=== PATIENT | male | born 1945 | race Caucasian/White ===

== ENCOUNTER 2016-10-02 02:39 | Inpatient (IN) | payer OTHER ==
[2016-10-02] VITALS (10 sets, daily range): BP systolic 106–155; BP diastolic 57–79; PULSE 50–88; TEMP 36.4–37.1; O2SAT 94–97; Ht 177.8 cm; Wt 108.9 kg
[~2016-10-02] VITALS: Ht 177.8 cm; Wt 108.9 kg
[2016-10-02] MEDS ORDERED: ASPIRIN 81 MG CHEW PO STA (02:53)
--- NOTE | 2016-10-02 03:25 | EMERGENCY ROOM VISIT NOTE ---
History Report prepared by Norbertibmarcos: Silver Leblanc Under the Supervision of: Dr. Ren Sarah D.O. First contact with patient: 02:42 Chief Complaint: CARDIAC ASSESSMENT Stated Complaint: BURNING SENSATION IN CHEST,HX HEART ATTACK History of Present Illness The patient is a 70 year old male who presents to the Emergency Room with complaints of resolved burning chest pain starting prior to arrival. The patient states that he has a history of myocardial infarctions and admits that his current symptoms feel similar to his previous heart attacks. The patient states that his previous history with myocardial infarctions caused him to get stents in 2013 and 2015. He reports that he has been getting these burning sensations intermittently for the last week and admits it occurs with exertion. The patient reports that earlier tonight, he was walking up the steps and laid down when he felt the burning sensation again. He states that he took nitroglycerin and admits that the symptoms resolved. The patient reports that he had arm pain, but admits he has been lifting heavy objects recently. He reports that he takes Aspirin daily. The patient denies headache, jaw pain, edema to the legs, change in vision, fevers, shortness of breath, nausea, vomiting, diarrhea, pain with urination, and melena. Source of History: patient Onset: prior to arrival Position: chest Quality: burning Timing: resolved Modifying Factors (Worsening): exertion Associated Symptoms: No SOB, No nausea, No vomiting Review of Systems See HPI for pertinent positives & negatives. A total of 10 systems reviewed and were otherwise negative. Past Medical & Surgical Medical Problems: (1) Acute coronary syndrome (2) Myocardial infarction (3) Substernal precordial chest pain Surgical Problems: (1) H/O heart artery stent Family History Patient reports no known family medical history. Social History Drug Use: none Marital Status: Housing Status: lives with significant other Occupation Status: retired Current/Historical Medications Scheduled Allopurinol (Zyloprim), 100 MG PO DAILY Aspirin (Aspirin Ec), 81 MG PO DAILY Atorvastatin (Lipitor), 80 MG PO DAILY Carvedilol (Coreg), 6.25 MG PO BID Clopidogrel (Plavix), 75 MG PO DAILY Ezetimibe (Zetia), 10 MG PO HS Insulin Glargine (Lantus), 44 UNITS SC HS Lisinopril (Prinivil), 10 MG PO DAILY Metformin Hcl (Glucophage), 1,000 MG PO BID Pantoprazole (Protonix), 40 MG PO DAILY Tamsulosin Hcl (Flomax), 0.4 MG PO HS Allergies Coded Allergies: No Known Allergies (Unverified , 10/02/16) Physical Exam Vital Signs Date Time Temp Pulse Resp B/P (MAP) Pulse Ox O2 Delivery O2 Flow Rate FiO2 10/02/16 05:54 58 16 122/56 96 10/02/16 05:07 54 16 122/60 95 Room Air 10/02/16 05:01 122/60 95 Room Air 10/02/16 04:44 61 15 10/02/16 04:31 112/62 10/02/16 04:14 57 15 93 Room Air 10/02/16 04:01 108/52 10/02/16 04:00 68 19 108/52 94 Room Air 10/02/16 03:44 67 20 10/02/16 03:39 65 13 94 Room Air 10/02/16 03:32 65 20 116/52 94 Room Air 10/02/16 03:32 10/02/16 03:09 66 17 93 Room Air 10/02/16 02:54 94 Room Air 10/02/16 02:53 68 10/02/16 02:49 113/87 10/02/16 02:45 94 Room Air 10/02/16 02:45 36.9 22 113/87 94 Room Air Physical Exam GENERAL: Sitting up in bed, alert, well appearing, well nourished, no distress, non-toxic EYE EXAM: normal conjunctiva, PERRL and EOM's grossly intact OROPHARYNX: no exudate, no erythema, lips, buccal mucosa, and tongue normal and mucous membranes are moist NECK: supple, no nuchal rigidity, no adenopathy, non-tender LUNGS: Clear to auscultation. Normal chest wall mechanics HEART: no murmurs, S1 normal and S2 normal ABDOMEN: abdomen soft, non-tender, normo-active bowel sounds, no masses, no rebound or guarding. BACK: Back is symmetrical on inspection and there is no deformity, no midline tenderness, no CVA tenderness. SKIN: no rashes and no bruising UPPER EXTREMITIES: upper extremities are grossly normal. LOWER EXTREMITIES: No pitting edema. Calves are equal bilaterally. NEURO EXAM: Normal sensorium. Medical Decision & Procedures ER Provider Diagnostic Interpretation: Radiology results as stated below per my review and the my interpretation: PORTABLE AP UPRIGHT ONE VIEW CHEST X-RAY: No Pneumothorax. No Focal Infiltrate. Laboratory Results 10/02/16 03:00 Red Blood Count 4.45, Mean Corpuscular Volume 90.6, Mean Corpuscular Hemoglobin 29.9, Mean Corpuscular Hemoglobin Concent 33.0, Mean Platelet Volume 11.3, Neutrophils (%) (Auto) 52.7, Lymphocytes (%) (Auto) 36.6, Monocytes (%) (Auto) 8.3, Eosinophils (%) (Auto) 2.0, Basophils (%) (Auto) 0.2, Neutrophils # (Auto) 4.98, Lymphocytes # (Auto) 3.47, Monocytes # (Auto) 0.79, Eosinophils # (Auto) 0.19, Basophils # (Auto) 0.02 10/02/16 03:00 Test 10/02/16 03:00 10/02/16 05:47 10/02/16 05:51 White Blood Count 9.47 K/uL (4.8-10.8) Red Blood Count 4.45 M/uL (4.7-6.1) Hemoglobin 13.3 g/dL (14.0-18.0) Hematocrit 40.3 % (42-52) Mean Corpuscular Volume 90.6 fL (80-100) Mean Corpuscular Hemoglobin 29.9 pg (25-34) Mean Corpuscular Hemoglobin Concent 33.0 g/dl (32-36) Platelet Count 234 K/uL (130-400) Mean Platelet Volume 11.3 fL (7.4-10.4) Neutrophils (%) (Auto) 52.7 % Lymphocytes (%) (Auto) 36.6 % Monocytes (%) (Auto) 8.3 % Eosinophils (%) (Auto) 2.0 % Basophils (%) (Auto) 0.2 % Neutrophils # (Auto) 4.98 K/uL (1.4-6.5) Lymphocytes # (Auto) 3.47 K/uL (1.2-3.4) Monocytes # (Auto) 0.79 K/uL (0.11-0.59) Eosinophils # (Auto) 0.19 K/uL (0-0.5) Basophils # (Auto) 0.02 K/uL (0-0.2) RDW Standard Deviation 44.1 fL (36.4-46.3) RDW Coefficient of Variation 13.4 % (11.5-14.5) Immature Granulocyte % (Auto) 0.2 % Immature Granulocyte # (Auto) 0.02 K/uL (0.00-0.02) Anion Gap 6.0 mmol/L (3-11) Est Creatinine Clear Calc Drug Dose 73.1 ml/min Estimated GFR () 71.1 Estimated GFR (Non- 61.3 BUN/Creatinine Ratio 18.0 (10-20) Calcium Level 8.5 mg/dl (8.5-10.1) Total Creatine Kinase 105 U/L (39-308) Creatine Kinase MB 2.1 ng/ml (0.5-3.6) Creatine Kinase MB Ratio 2.0 (0-3.0) Troponin I 0.125 ng/ml (0-0.045) Laboratory results per my review. Medications Administered Medications (Trade) Dose Ordered Sig/Uriah Route Start Time Stop Time Status Last Admin Dose Admin Aspirin (Aspirin Chew) 324 mg NOW STAT PO 10/02/16 02:53 10/02/16 02:55 DC 10/02/16 03:05 324 MG Heparin Sodium/ Dextrose 500 ml @ 32 mls/hr [id number] PRN IV 10/02/16 05:45 11/01/16 05:44 10/02/16 05:48 32 MLS/HR Heparin Sodium (Porcine) (Heparin Sq 5000 Unit/0.5ml) 7,000 unit NOW ONCE IV 10/02/16 05:45 10/02/16 05:46 DC 10/02/16 05:44 7,000 UNIT ECG Indication: chest pain Rate (beats per minute): 69 Rhythm: sinus rhythm Findings: nonspecific-ST abn (Lateral), Q waves (Septal), ST depression ( Inferior), T-wave inversion (Lateral), left axis deviation ED Course ED COURSE: Vital signs were reviewed and showed bradycardia. The patients medical record was reviewed The above diagnostic studies were performed and reviewed. ED treatments and interventions as stated above. 0248: The patient was evaluated in room A02. A complete history and physical examination was performed. 0253: Aspirin 324 mg PO. 0417: I reevaluated the patient and he is resting comfortably with no pain. I updated him on his results and discussed his treatment plan. He agrees to admission. The patient will be further evaluated. 0450: I discussed the patient's case with Dr. Fajardo [facility] Hospitalist. He understands the patient's conditions and agrees to accept the patient. The patient will be further evaluated. Medical Decision Differential diagnoses includes but is not limited to acute coronary syndrome, myocardial infarction, pericarditis, pulmonary embolus, aortic dissection, pneumonia, pneumothorax, musculoskeletal, shingles, esophageal. Medication Reconciliation: I attest that I have personally reviewed the patient' s current medication list. Blood pressure screening: Patient was found to have normal blood pressure on screening and does not require follow-up. Patient is a 70-year-old male with past medical history of an OH in 2013 following which he had stents placed. He also had stents placed this past October as well for exertional chest pain. Tonight he presents for exertional chest pain described as a burning which has been present off-and-on for the past week. He notes the pain has been getting worse. This occurred tonight after climbing a flight of stairs. Pain resolved with nitroglycerin. He was given aspirin in the ER. EKG shows septal Q waves along with flipped T waves in the high lateral leads and slight ST depression in the inferior leads. Chest x-ray was negative. This in combination with his history I felt it was prudent to watch him overnight as he is a high risk for ACS. Troponin was positive. Patient had no chest pain on 2 separate evaluations. Patient was admitted to internal medicine for and NSTEMI. Consults Time Called: [phone] Consulting Physician: Dr. Fajardo [facility] Hospitalist Returned Call: [phone] I discussed the patient's case with Dr. Fajardo [facility] Hospitalist. He understands the patient's conditions and agrees to accept the patient. The patient will be further evaluated. Impression Primary Impression: NSTEMI (non-ST elevated myocardial infarction) Scribe Attestation The scribe's documentation has been prepared under my direction and personally reviewed by me in its entirety. I confirm that the note above accurately reflects all work, treatment, procedures, and medical decision making performed by me. Departure Information Dispostion Being Evaluated By Hospitalist (Dr. Fajardo, [facility] Hospitalist) Referrals No Doctor, Assigned (PCP) Patient Instructions My [facility]
[2016-10-02 03:28] LABS: BASO % 0.2 %; BASO ABS # 0.02 K/uL (0-0.2); COMPLETE YES; HEMATOCRIT 40.3 % (42-52); IG% 0.2 %; LYMPH % 36.6 %; LYMPH ABS # 3.47 K/uL (1.2-3.4); MEAN CELL VOLUME 90.6 fL (80-100); MEAN CORPUSCULAR HEMOGLOBIN 29.9 pg (25-34); MEAN PLATELET VOLUME 11.3 fL (7.4-10.4); MONO % 8.3 %; NEUT % 52.7 %; PLATELET COUNT 234 K/uL (130-400); RED BLOOD COUNT 4.45 M/uL (4.7-6.1); WHITE BLOOD COUNT 9.47 K/uL (4.8-10.8)
[2016-10-02 03:35] LABS: CALCIUM 8.5 mg/dl (8.5-10.1); CREATININE 1.2 mg/dl (0.60-1.40); POTASSIUM 4.1 mmol/L (3.5-5.1)
[2016-10-02] MEDS ORDERED: ASPI81TA28 PO (04:03)
[2016-10-02] MEDS ORDERED: CARV6.252 PO (04:03)
[2016-10-02] MEDS ORDERED: ALLO100T PO (04:03)
[2016-10-02] MEDS ORDERED: METF-384 PO (04:03)
[2016-10-02] MEDS ORDERED: PANT40TA PO (04:03)
[2016-10-02] MEDS ORDERED: EZET10TA63 PO (04:05)
[2016-10-02] MEDS ORDERED: TAMS0.4C38 PO (04:05)
[2016-10-02] MEDS ORDERED: ATOR-26 PO (04:05)
[2016-10-02] MEDS ORDERED: LISI10TA PO (04:05)
[2016-10-02] MEDS ORDERED: CLOP1TAB15 PO (04:05)
[2016-10-02] MEDS ORDERED: INSDGI SC (04:05)
[2016-10-02] MEDS ORDERED: ONDANSETRON INJ 2 MG/ML 2 ML VIAL IV PRN (05:30)
[2016-10-02] MEDS ORDERED: NITROGLYCERIN 0.4 MG SL PER TAB CHARGE SL PRN (05:30)
[2016-10-02] MEDS ORDERED: POLYETHYLENE (MIRALAX) 17 GM PACK PO PRN (05:30)
[2016-10-02] MEDS ORDERED: MoRPHine SULFATE 2 MG/ML CARP IV PRN ×2 (05:30→17:15)
--- NOTE | 2016-10-02 05:40 | History and Physical ---
History & Physical Date & Time of Service: Oct 02, 2016 at 05:33 Chief Complaint: Burning Sensation In Chest,Hx Heart Attack Primary Care Physician: No Doctor, Assigned History of Present Illness Source: patient 70-year-old male with a past medical history of SC in 2013, 2016 status post stent placement, diabetes, gout presented to the ER with complaints of burning chest pain which started about a week ago which is especially worse on exertion. Complains that the chest pain worsened last night after he took a flight of stairs described the pain as a burning sensation. Pain is in the precordial area with no radiation. Denies any shortness of breath, palpitations, dizziness. He however has shortness of breath on exertion. He reported that the chest pain resolved after taking one tablet of sublingual nitroglycerin and currently is pain-free. Denies any diaphoresis but complained of nausea. Denies vomiting, abdominal pain, diarrhea, coughing, urinary symptoms Past Medical/Surgical History Medical Problems: (1) Myocardial infarction Status: Resolved Surgical Problems: (1) H/O heart artery stent Status: Resolved Family History Patient reports no known family medical history. Social History Smoking Status: Former Smoker Drug Use: none Marital Status: Occupational Status: retired Allergies Coded Allergies: No Known Allergies (Unverified , 10/02/16) Home Medications Scheduled Allopurinol (Zyloprim), 100 MG PO DAILY Aspirin (Aspirin Ec), 81 MG PO DAILY Atorvastatin (Lipitor), 80 MG PO DAILY Carvedilol (Coreg), 6.25 MG PO BID Clopidogrel (Plavix), 75 MG PO DAILY Ezetimibe (Zetia), 10 MG PO HS Insulin Glargine (Lantus), 44 UNITS SC HS Lisinopril (Prinivil), 10 MG PO DAILY Nitroglycerin (Nitrostat), 1 TAB SL UD Pantoprazole (Protonix), 40 MG PO DAILY Tamsulosin Hcl (Flomax), 0.4 MG PO HS Review of Systems Constitutional: No fever, No chills Eyes: No worsening of vision ENT: No hearing loss Respiratory: No cough Cardiovascular: + chest pain (burning ) Abdomen: + nausea, No pain, No vomiting, No diarrhea Musculoskeletal: No joint pain Genitourinary - Male: No hematuria, No dysuria, No urinary frequency Neurologic: No memory loss Endocrine: No fatigue Hematologic / Lymphatic: No abnormal bleeding/bruising Integumentary: No rash Physical Exam Vital Signs Date Time Temp Pulse Resp B/P (MAP) Pulse Ox O2 Delivery O2 Flow Rate FiO2 10/02/16 05:07 54 16 122/60 95 Room Air 10/02/16 05:01 122/60 95 Room Air 10/02/16 04:44 61 15 10/02/16 04:31 112/62 10/02/16 04:14 57 15 93 Room Air 10/02/16 04:01 108/52 10/02/16 04:00 68 19 108/52 94 Room Air 10/02/16 03:44 67 20 10/02/16 03:39 65 13 94 Room Air 10/02/16 03:32 65 20 116/52 94 Room Air 10/02/16 03:32 10/02/16 03:09 66 17 93 Room Air 10/02/16 02:54 94 Room Air 10/02/16 02:53 68 10/02/16 02:49 113/87 10/02/16 02:45 94 Room Air 10/02/16 02:45 36.9 22 113/87 94 Room Air General Appearance: WD/WN, no apparent distress Head: normocephalic Eyes: normal inspection ENT: normal ENT inspection, hearing grossly normal Neck: supple Respiratory/Chest: chest non-tender, lungs clear, normal breath sounds, no respiratory distress, no accessory muscle use Cardiovascular: regular rate, rhythm Abdomen/GI: normal bowel sounds, non tender, soft Extremities/Musculoskelatal: no pedal edema Neurologic/Psych: alert, normal mood/affect, oriented x 3 Skin: + pertinent finding (intertrigo under right breast) Diagnostics Laboratory Results Results Past 24 Hours Test 10/02/16 03:00 10/02/16 05:21 Range/Units White Blood Count 9.47 4.8-10.8 K/uL Red Blood Count 4.45 4.7-6.1 M/uL Hemoglobin 13.3 14.0-18.0 g/dL Hematocrit 40.3 42-52 % Mean Corpuscular Volume 90.6 80-100 fL Mean Corpuscular Hemoglobin 29.9 25-34 pg Mean Corpuscular Hemoglobin Concent 33.0 32-36 g/dl Platelet Count 234 130-400 K/uL Mean Platelet Volume 11.3 7.4-10.4 fL Neutrophils (%) (Auto) 52.7 % Lymphocytes (%) (Auto) 36.6 % Monocytes (%) (Auto) 8.3 % Eosinophils (%) (Auto) 2.0 % Basophils (%) (Auto) 0.2 % Neutrophils # (Auto) 4.98 1.4-6.5 K/uL Lymphocytes # (Auto) 3.47 1.2-3.4 K/uL Monocytes # (Auto) 0.79 0.11-0.59 K/uL Eosinophils # (Auto) 0.19 0-0.5 K/uL Basophils # (Auto) 0.02 0-0.2 K/uL RDW Standard Deviation 44.1 36.4-46.3 fL RDW Coefficient of Variation 13.4 11.5-14.5 % Immature Granulocyte % (Auto) 0.2 % Immature Granulocyte # (Auto) 0.02 0.00-0.02 K/uL Sodium Level 141 136-145 mmol/L Potassium Level 4.1 3.5-5.1 mmol/L Chloride Level 103 98-107 mmol/L Carbon Dioxide Level 32 21-32 mmol/L Anion Gap 6.0 3-11 mmol/L Blood Urea Nitrogen 22 7-18 mg/dl Creatinine 1.20 0.60-1.40 mg/dl Est Creatinine Clear Calc Drug Dose 73.1 ml/min Estimated GFR () 71.1 Estimated GFR (Non- 61.3 BUN/Creatinine Ratio 18.0 10-20 Random Glucose 238 70-99 mg/dl Calcium Level 8.5 8.5-10.1 mg/dl Total Creatine Kinase 105 39-308 U/L Creatine Kinase MB 2.1 0.5-3.6 ng/ml Creatine Kinase MB Ratio 2.0 0-3.0 Troponin I 0.125 0-0.045 ng/ml EKG NSR, 69 BPM ,nonspecific-ST abn (Lateral), Q waves (Septal), ST depression ( Inferior), T-wave inversion (Lateral), left axis deviation Impression Assessment and Plan 70-year-old male with a past medical history of SC in 2013, 2016 status post stent placement, diabetes, gout presented to the ER with complaints of burning chest pain which started about a week ago which is especially worse on exertion. Presented with chest pain which started today after climbing a flight of stairs and resolved with 1 tablet sublingual nitroglycerin. ACS status post stents in 2016 - EKG: NSR, 69 BPM ,nonspecific-ST abn (Lateral), Q waves (Septal), ST depression (Inferior), T-wave inversion (Lateral), left axis deviation - Initial troponin elevated at 0.125, troponins trended every 8 hours - Heparin drip with bolus - Continue aspirin, Plavix - Continue Coreg, Lipitor, ezetimibe, lisinopril - Fasting lipids ordered - Echo ordered - Cardiology consult Type 2 diabetes - Hold home medications - Sliding-scale insulin - Check hemoglobin A1c Gout: - Continue allopurinol GERD; - Continue Protonix Intertrigo under the right breast: - Nystatin Full code Disposition: Admitted to telemetry Level of Care Telemetry Resuscitation Status FULL RESUSCITATION VTE Prophylaxis VTE Risk Assessment Done? Y/N: Yes Risk Level: Moderate Given or contraindicated: Other Anticoagulation (heparin drip) Resident Tracking Resident Involvement: Resident Care Provided Care Provided: Adult [facility] Medicine Assessment and Plan Attending Addendum: I physically seen and examined this patient, have supervised the medical residents activities, and agree with the H&P as noted above with the following exceptions: NONE The patient is awake, well-developed and adequately nourished, alert and oriented 3, normocephalic and atraumatic, lying in bed and in no acute distress. HEENT--PERRL, EOMI, mucous membranes and oropharynx dry. Neck--supple, no JVD or bruits, thyroid normal, trachea midline, no adenopathy. Heart--normal S1 and S2, no extra beats, no murmurs, rubs or gallops. Lungs--clear bilaterally with good air movement, no respiratory distress, no accessory muscle use. Abdomen--normal bowel sounds and soft, nontender and nondistended, no hernias or masses, no organomegaly. Extremities--no cyanosis, clubbing or edema. There are good distal pulses b/l. Dermatologic--normal skin turgor, normal color, warm and dry, no abnormal lymph nodes, no rash. Neurologic--cranial nerves II through XII grossly intact, motor and sensory examination normal. Rheumatologic--normal range of motion, nontender, muscles and joints. Psychiatric--normal affect. Assessment and Plan: 1. CAD/hypertension/coronary artery stent/burning precordial chest pain-- patient will be admitted to telemetry unit for serial cardiac enzymes, cardiac rhythm monitoring and a 2-D echocardiogram with Dopplers. Initial troponin is elevated 0.125. EKG shows nonspecific ST-T changes. We will continue aspirin, Plavix, Coreg and lisinopril. We'll add heparin drip IV standard dose, with bolus not to exceed 5000 units, per protocol. Order fasting profile. Order cardiology consult.
[2016-10-02] MEDS ORDERED: HEPARIN SOD 5000 UNIT/0.5 ML CARP IV ONE (05:45)
[2016-10-02] MEDS ORDERED: HEPARIN 25,000 UNIT/500ML D5W 500 ML IV PRN (05:45)
[2016-10-02 06:08] LABS: CHOLESTEROL/HDL RATIO 2.6
[2016-10-02] MEDS: INSULIN ASPART 100 UNITS/ML 3 ML PEN SC SCH ×4 (07:00→20:53)
[2016-10-02 07:07] LABS: INR 1.1 (0.9-1.1); PROTHROMBIN TIME (PATIENT) 11.5 SECONDS (9.0-12.0)
--- NOTE | 2016-10-02 07:12 | DIAGNOSTIC IMAGING REPORT ---
CHEST ONE VIEW PORTABLE CLINICAL HISTORY: Chest Pain dyspnea COMPARISON STUDY: No previous studies for comparison. FINDINGS: The bones soft tissues and hemidiaphragms are normal. The cardiomediastinal silhouette is normal. The lungs are clear. The pulmonary vasculature is normal. IMPRESSION: Negative chest. Electronically signed by: Roni Collins M.D. 10/02/2016 7:11 AM Dictated Date/Time: 10/02/2016 7:10 AM
[2016-10-02] MEDS ORDERED: SODIUM CHLORIDE 0.9% 1000ML 1,000 ML IV SCH (07:30)
[2016-10-02] MEDS: ASPIRIN 81 MG ECTAB PO SCH (08:13)
[2016-10-02] MEDS: ALLOPURINOL 100 MG TAB PO SCH (08:14)
[2016-10-02] MEDS: CARVEDILOL 6.25 MG TAB PO SCH ×2 (08:14→20:50)
[2016-10-02] MEDS: CLOPIDOGREL BISULFATE 75 MG TAB PO SCH (08:14)
[2016-10-02] MEDS: ATORVASTATIN 40 MG TAB PO SCH (08:15)
[2016-10-02] MEDS: PANTOprazole SOD 40 MG TAB PO SCH (08:15)
[2016-10-02] MEDS: LISINOPRIL 10 MG TAB PO SCH (08:15)
[2016-10-02] MEDS: NYSTATIN OINT 15 GM TUBE EXT SCH ×3 (08:19→17:48)
--- NOTE | 2016-10-02 08:58 | Family Medicine Progress Note ---
Progress Note Date of Service Oct 02, 2016. Subjective Pt evaluation today including: conversation w/ patient, conversation w/ family Patient admitted this morning, reviewed again on rounds. He denies any chest pain currently. He was previously getting angina on exertion. Next troponin at 11am. Lives about 2 hours away, was here visiting his step son. Constitutional: No fever Respiratory: No cough, No sputum Cardiovascular: No chest pain All Other Systems: Reviewed and Negative Medications Current Inpatient Medications Medications (Trade) Dose Ordered Sig/Uriah Route Start Time Stop Time Status Last Admin Dose Admin Sodium Chloride 1,000 ml @ 75 mls/hr [id number] IV 10/02/16 07:30 11/01/16 07:29 10/02/16 08:07 75 MLS/HR Acetaminophen (Tylenol Tab) 650 mg Q4H PRN PO 10/02/16 05:30 11/01/16 05:29 Ondansetron HCl (Zofran Inj) 4 mg Q6H PRN IV 10/02/16 05:30 11/01/16 05:29 Nitroglycerin (Nitrostat Tab) 0.4 mg UD PRN SL 10/02/16 05:30 11/01/16 05:29 Morphine Sulfate (MoRPHine SULFATE INJ) 2 mg Q30M PRN IV 10/02/16 05:30 10/16/16 05:29 Polyethylene (Miralax Powder Packet) 17 gm DAILY PRN PO 10/02/16 05:30 11/01/16 05:29 Allopurinol (Zyloprim Tab) 100 mg DAILY PO 10/02/16 09:00 11/01/16 08:59 10/02/16 08:14 100 MG Aspirin (Ecotrin Tab) 81 mg DAILY PO 10/02/16 09:00 11/01/16 08:59 10/02/16 08:13 81 MG Atorvastatin Calcium (Lipitor Tab) 80 mg DAILY PO 10/02/16 09:00 11/01/16 08:59 10/02/16 08:15 80 MG Carvedilol (Coreg Tab) 6.25 mg BID PO 10/02/16 09:00 11/01/16 08:59 10/02/16 08:14 6.25 MG Clopidogrel Bisulfate (plAVix TAB) 75 mg DAILY PO 10/02/16 09:00 11/01/16 08:59 10/02/16 08:14 75 MG EZETIMIBE (Zetia Tab) 10 mg HS PO 10/02/16 21:00 11/01/16 20:59 Lisinopril (Zestril Tab) 10 mg DAILY PO 10/02/16 09:00 11/01/16 08:59 10/02/16 08:15 10 MG Pantoprazole Sodium (Protonix Tab) 40 mg DAILY PO 10/02/16 09:00 11/01/16 08:59 10/02/16 08:15 40 MG Tamsulosin HCl (Flomax Cap) 0.4 mg HS PO 10/02/16 21:00 11/01/16 20:59 Heparin Sodium/ Dextrose 500 ml @ 32 mls/hr [id number] PRN IV 10/02/16 05:45 11/01/16 05:44 10/02/16 05:48 32 MLS/HR Insulin Aspart (novoLOG ASPART) SLIDING SCALE G... ACHS SC 10/02/16 07:00 11/01/16 06:59 Nystatin (Mycostatin Oint) 1 appln [id number] EXT 10/02/16 08:00 11/01/16 07:59 10/02/16 08:19 1 APPLN Objective Vital Signs Date Time Temp Pulse Resp B/P (MAP) Pulse Ox O2 Delivery O2 Flow Rate FiO2 10/02/16 08:05 36.6 62 16 125/63 (83) 94 Room Air 10/02/16 06:23 36.5 59 18 155/79 95 Room Air 10/02/16 05:54 58 16 122/56 96 10/02/16 05:07 54 16 122/60 95 Room Air 10/02/16 05:01 122/60 95 Room Air 10/02/16 04:44 61 15 10/02/16 04:31 112/62 10/02/16 04:14 57 15 93 Room Air 10/02/16 04:01 108/52 10/02/16 04:00 68 19 108/52 94 Room Air 10/02/16 03:44 67 20 10/02/16 03:39 65 13 94 Room Air 10/02/16 03:32 65 20 116/52 94 Room Air 10/02/16 03:32 10/02/16 03:09 66 17 93 Room Air 10/02/16 02:54 94 Room Air 10/02/16 02:53 68 10/02/16 02:49 113/87 10/02/16 02:45 94 Room Air 10/02/16 02:45 36.9 22 113/87 94 Room Air Physical Exam General Appearance: WD/WN, no apparent distress Eyes: normal inspection, PERRL ENT: hearing grossly normal Neck: supple, no JVD Respiratory/Chest: chest non-tender, lungs clear Cardiovascular: regular rate, rhythm, no murmur Abdomen: non tender, soft Extremities: non-tender, no pedal edema Neurologic/Psychiatric: alert, normal mood/affect, oriented x 3 Skin: no rash Laboratory Results Last 24 Hours Test 10/02/16 03:00 White Blood Count 9.47 K/uL Red Blood Count 4.45 M/uL Hemoglobin 13.3 g/dL Hematocrit 40.3 % Mean Corpuscular Volume 90.6 fL Mean Corpuscular Hemoglobin 29.9 pg Mean Corpuscular Hemoglobin Concent 33.0 g/dl Platelet Count 234 K/uL Mean Platelet Volume 11.3 fL Neutrophils (%) (Auto) 52.7 % Lymphocytes (%) (Auto) 36.6 % Monocytes (%) (Auto) 8.3 % Eosinophils (%) (Auto) 2.0 % Basophils (%) (Auto) 0.2 % Neutrophils # (Auto) 4.98 K/uL Lymphocytes # (Auto) 3.47 K/uL Monocytes # (Auto) 0.79 K/uL Eosinophils # (Auto) 0.19 K/uL Basophils # (Auto) 0.02 K/uL RDW Standard Deviation 44.1 fL RDW Coefficient of Variation 13.4 % Immature Granulocyte % (Auto) 0.2 % Immature Granulocyte # (Auto) 0.02 K/uL Prothrombin Time 11.5 SECONDS Prothromb Time International Ratio 1.1 Activated Partial Thromboplast Time 26.4 SECONDS Partial Thromboplastin Ratio 1.0 Sodium Level 141 mmol/L Potassium Level 4.1 mmol/L Chloride Level 103 mmol/L Carbon Dioxide Level 32 mmol/L Anion Gap 6.0 mmol/L Blood Urea Nitrogen 22 mg/dl Creatinine 1.20 mg/dl Est Creatinine Clear Calc Drug Dose 73.1 ml/min Estimated GFR () 71.1 Estimated GFR (Non- 61.3 BUN/Creatinine Ratio 18.0 Random Glucose 238 mg/dl Calcium Level 8.5 mg/dl Total Creatine Kinase 105 U/L Creatine Kinase MB 2.1 ng/ml Creatine Kinase MB Ratio 2.0 Troponin I 0.125 ng/ml Triglycerides Level 149 mg/dl Cholesterol Level 80 mg/dl HDL Cholesterol 31 mg/dl LDL Cholesterol, Calculated 19 mg/dl VLDL Cholesterol, Calculated 30 mg/dl Cholesterol/HDL Ratio 2.6 Assessment and Plan 70 yo diabetic M with known CAD ([place] in 2013, s/p stent placement 2015), with angina, with mild troponin elevation. NSTEMI Initial troponin 0.125, next due at 11am Will repeat EKG this AM Continue aspirin, plavix, DAMIEN-I, Bblocker Placed on heparin drip on admission Cardiology consulted Echo ordered Hyperlipidemia Lipid panel ordered Zetia continued T2DM HbA1c ordered Sliding scale insulin Per diabetic nurse: Will need to prescribe - OneTouch Verio test strips to check 3x/day & OneTouch Delica lancets to check 3x/day. He has been given a new glucometer. Gout Continue home allopurinol GERD Continue home Protonix Intertrigo under the right breast Nystatin CODE STATUS: FULL Disposition: Admitted to telemetry VTE: Heparin drip ---- Resident Physician Supervision Note: I was present with PGY3 Dr. Layne Steele during the history and exam. I discussed the case with the resident and agree with the findings and plan as documented in the note. Any exceptions or clarifications are listed here: none. I saw the patient post-cath; he was resting comfortably. No chest pain or dyspnea. Cath report reviewed - left Cx lesion, s/p CIPRIANO. VSS afebrile gen - nad neck - no JVD heart - RRR, s1, s2, 1/6 RACHEL LSB lungs - CTA b/l right wrist - no hematoma; band in place ext - no edema A/P: NSTEMI 2nd to left circumflex lesion s/p CIPRIANO. Appreciate Dr. Chavez's assistance. Await echo. No signs of acute CHF from NSTEMI. Trend troponin to peak. Aggressive risk factor modification including improved glycemic control. Documented By: Stephen Garcia MD Resident Tracking Resident Involvement: Resident Care Provided Care Provided: Adult [facility] Medicine
[2016-10-02 09:38] LABS: ESTIMATED AVERAGE GLUCOSE 197 mg/dl; HA1C FLAG Normal (Normal)
[2016-10-02] MEDS ORDERED: PERFLUTREN LIPID MICROSPHERE (DEFINITY) IV ONE (10:31)
[2016-10-02] MEDS: ACETAMINOPHEN 325 MG TAB PO PRN ×3 (11:53→20:52)
[2016-10-02 12:33] LABS: PARTIAL THROMBOPLASTIN RATIO 2.8
--- NOTE | 2016-10-02 14:59 | Cardiology Consultation ---
Cardiology Consultation Date of Consultation: Oct 02, 2016. Requesting Physician: Dr. Pride Reason for Consultation: Chest discomfort, abnormal EKG Pt evaluation today including: conversation w/ patient, conversation w/ family , physical exam, lab review, review of inpatient medication list History of Present Illness This is a very pleasant 70-year-old gentleman who has a history of coronary artery disease taken care of in [place]. He was visiting in this area and developed substernal chest discomfort and was brought to the emergency room during the night. His background includes a myocardial infarction of the LAD in October 2013 with stent placement, and I believe recurrent stent placement in the same area with recurrent symptoms in November 2015. He appears to have had a negative stress test when he presented with chest discomfort in March 2016. None of that took place here. He recalls having intermittent substernal chest burning for the last week, this was coming and going it then became more severe yesterday evening when he went to bed. He therefore came into the emergency room where he had borderline cardiac enzymes, was treated with intravenous heparin and became pain-free. Following admission his enzymes have risen slightly (max 0.16), his electrocardiogram has progressed with anterolateral T-wave inversion but he has been pain-free. Past Medical/Surgical History (1) H/O heart artery stent (2) Myocardial infarction Family History Patient reports no known family medical history. Social History Smoking Status: Never Smoker History of Alcohol Use: No Review of Systems Constitutional: No fever, No weight loss, No weakness Respiratory: No cough, No sputum Cardiac: + see HPI, + chest pain Abdomen: No pain, No nausea, No vomiting, No diarrhea, No GI bleeding Male : No urinary frequency, No nocturia more than once/night, No slowing stream, No sexual dysfunction Neurologic: No paralysis, No weakness, No numbness/tingling, No balance problems Heme: No abnormal bleeding/bruising, No clotting problems Endo: No fatigue Skin: No problem reported All Other Systems: Reviewed and Negative Allergies Coded Allergies: No Known Allergies (Unverified , 10/02/16) Medications Current Inpatient Medications Medications (Trade) Dose Ordered Sig/Uriah Route Start Time Stop Time Status Last Admin Dose Admin Sodium Chloride 1,000 ml @ 75 mls/hr [id number] IV 10/02/16 07:30 11/01/16 07:29 10/02/16 08:07 75 MLS/HR Acetaminophen (Tylenol Tab) 650 mg Q4H PRN PO 10/02/16 05:30 11/01/16 05:29 10/02/16 11:53 650 MG Ondansetron HCl (Zofran Inj) 4 mg Q6H PRN IV 10/02/16 05:30 11/01/16 05:29 Nitroglycerin (Nitrostat Tab) 0.4 mg UD PRN SL 10/02/16 05:30 11/01/16 05:29 Morphine Sulfate (MoRPHine SULFATE INJ) 2 mg Q30M PRN IV 10/02/16 05:30 10/16/16 05:29 Polyethylene (Miralax Powder Packet) 17 gm DAILY PRN PO 10/02/16 05:30 11/01/16 05:29 Allopurinol (Zyloprim Tab) 100 mg DAILY PO 10/02/16 09:00 11/01/16 08:59 10/02/16 08:14 100 MG Aspirin (Ecotrin Tab) 81 mg DAILY PO 10/02/16 09:00 11/01/16 08:59 10/02/16 08:13 81 MG Atorvastatin Calcium (Lipitor Tab) 80 mg DAILY PO 10/02/16 09:00 11/01/16 08:59 10/02/16 08:15 80 MG Carvedilol (Coreg Tab) 6.25 mg BID PO 10/02/16 09:00 11/01/16 08:59 10/02/16 08:14 6.25 MG Clopidogrel Bisulfate (plAVix TAB) 75 mg DAILY PO 10/02/16 09:00 11/01/16 08:59 10/02/16 08:14 75 MG EZETIMIBE (Zetia Tab) 10 mg HS PO 10/02/16 21:00 11/01/16 20:59 Lisinopril (Zestril Tab) 10 mg DAILY PO 10/02/16 09:00 11/01/16 08:59 10/02/16 08:15 10 MG Pantoprazole Sodium (Protonix Tab) 40 mg DAILY PO 10/02/16 09:00 11/01/16 08:59 10/02/16 08:15 40 MG Tamsulosin HCl (Flomax Cap) 0.4 mg HS PO 10/02/16 21:00 11/01/16 20:59 Heparin Sodium/ Dextrose 500 ml @ 30 mls/hr [id number] PRN IV 10/02/16 05:45 11/01/16 05:44 10/02/16 05:48 32 MLS/HR Insulin Aspart (novoLOG ASPART) SLIDING SCALE G... ACHS SC 10/02/16 07:00 11/01/16 06:59 10/02/16 12:30 1 UNITS Nystatin (Mycostatin Oint) 1 appln [id number] EXT 10/02/16 08:00 11/01/16 07:59 10/02/16 12:31 1 APPLN Physical Exam Vital Signs Past 12 Hours Date Time Temp Pulse Resp B/P (MAP) Pulse Ox O2 Delivery O2 Flow Rate FiO2 10/02/16 12:00 Room Air 10/02/16 11:44 36.5 55 18 116/57 (76) 94 Room Air 10/02/16 08:05 36.6 62 16 125/63 (83) 94 Room Air 10/02/16 08:00 Room Air 10/02/16 06:23 36.5 59 18 155/79 95 Room Air 10/02/16 05:54 58 16 122/56 96 10/02/16 05:07 54 16 122/60 95 Room Air 10/02/16 05:01 122/60 95 Room Air 10/02/16 04:44 61 15 10/02/16 04:31 112/62 10/02/16 04:14 57 15 93 Room Air 10/02/16 04:01 108/52 10/02/16 04:00 68 19 108/52 94 Room Air 10/02/16 03:44 67 20 10/02/16 03:39 65 13 94 Room Air 10/02/16 03:32 65 20 116/52 94 Room Air 10/02/16 03:32 10/02/16 03:09 66 17 93 Room Air Constitutional: General Apperance: heathly-appearing Level of Distress: NAD Psychiatric: Mental Status: active & alert Head: normocephalic Eyes: EOM: EOMI ENMT: normal ENT inspection, hearing grossly normal Neck: supple, no masses Lungs: Respiratory effort: no dyspnea, good air movement Auscultation: breath sounds normal, no wheezing Cardiovascular: Heart Auscultation: RRR, no rubs, no gallops, II/ RACHEL Peripheral Pulses: Bruits: none appreciated Abdomen: Bowel Sounds: normal Inspection & Palpation: soft, no tenderness, guarding & rebound, no masses Musculoskeletal: normal strength (5/5 throughout) Extremities: no edema Neurologic: Cranial Nerves: grossly intact Sensation: grossly intact Data Laboratory Results: Last 24 Hours Test 10/02/16 03:00 10/02/16 08:37 10/02/16 11:46 10/02/16 11:48 White Blood Count 9.47 K/uL Red Blood Count 4.45 M/uL Hemoglobin 13.3 g/dL Hematocrit 40.3 % Mean Corpuscular Volume 90.6 fL Mean Corpuscular Hemoglobin 29.9 pg Mean Corpuscular Hemoglobin Concent 33.0 g/dl Platelet Count 234 K/uL Mean Platelet Volume 11.3 fL Neutrophils (%) (Auto) 52.7 % Lymphocytes (%) (Auto) 36.6 % Monocytes (%) (Auto) 8.3 % Eosinophils (%) (Auto) 2.0 % Basophils (%) (Auto) 0.2 % Neutrophils # (Auto) 4.98 K/uL Lymphocytes # (Auto) 3.47 K/uL Monocytes # (Auto) 0.79 K/uL Eosinophils # (Auto) 0.19 K/uL Basophils # (Auto) 0.02 K/uL RDW Standard Deviation 44.1 fL RDW Coefficient of Variation 13.4 % Immature Granulocyte % (Auto) 0.2 % Immature Granulocyte # (Auto) 0.02 K/uL Prothrombin Time 11.5 SECONDS Prothromb Time International Ratio 1.1 Activated Partial Thromboplast Time 26.4 SECONDS 72.1 SECONDS Partial Thromboplastin Ratio 1.0 2.8 Sodium Level 141 mmol/L Potassium Level 4.1 mmol/L Chloride Level 103 mmol/L Carbon Dioxide Level 32 mmol/L Anion Gap 6.0 mmol/L Blood Urea Nitrogen 22 mg/dl Creatinine 1.20 mg/dl Est Creatinine Clear Calc Drug Dose 73.1 ml/min Estimated GFR () 71.1 Estimated GFR (Non- 61.3 BUN/Creatinine Ratio 18.0 Random Glucose 238 mg/dl Estimated Average Glucose 197 mg/dl Hemoglobin A1c 8.5 % Calcium Level 8.5 mg/dl Total Creatine Kinase 105 U/L Creatine Kinase MB 2.1 ng/ml Creatine Kinase MB Ratio 2.0 Troponin I 0.125 ng/ml 0.169 ng/ml Triglycerides Level 149 mg/dl Cholesterol Level 80 mg/dl HDL Cholesterol 31 mg/dl LDL Cholesterol, Calculated 19 mg/dl VLDL Cholesterol, Calculated 30 mg/dl Cholesterol/HDL Ratio 2.6 Bedside Glucose 172 mg/dl 190 mg/dl Hepatitis C Antibody Screen NEG Imaging: Echo done, results pending EKG:On admission sinus rhythm, anterolateral ST-T abnormalities. Several hours later, sinus rhythm, worsening anterolateral T changes Telemetry reviewed: Sinus rhythm, no significant arrhythmia Assessment & Plan #1. Chest discomfort: His chest discomfort is very similar to his initial presentation of myocardial infarction and in association with his enzyme abnormalities and his electrocardiogram probably represents unstable angina. He has not had any following admission on intravenous heparin. #2. Non-ST segment elevation myocardial infarction: He presents with T-wave inversions and low-grade cardiac enzymes consistent with non-ST segment elevation myocardial infarction. With his unstable symptoms he should have cardiac catheterization and probable intervention. I discussed the indications with him, and he is agreeable. His family was present as well. Thank you for allowing me to participate in his care.
[2016-10-02] MEDS ORDERED: HEPARIN SOD (PORCINE) 1000 UNIT/ML 10 ML VIAL ONE ×2 (15:04→16:21)
[2016-10-02] MEDS ORDERED: NiCARDipine HCL INJ 2.5 MG/ML 10 ML AMP ONE (15:04)
[2016-10-02] MEDS ORDERED: MIDAZOLAM HCL 1 MG/ML 2ML VIAL ONE ×2 (15:05→16:14)
[2016-10-02] MEDS ORDERED: FENTANYL CITRATE INJ 50 MCG/1 ML 2 ML VIAL ONE (15:05)
[2016-10-02] MEDS ORDERED: NITROGLYCERIN/D5W 100MCG/ML 20ML SYR ONE (15:06)
--- NOTE | 2016-10-02 15:23 | Procedure Note ---
Pre-Mod Sedation Assessment General Date of Moderate Sedation: Oct 02, 2016. Vital Signs: Vital Signs Past 12 Hours Date Time Temp Pulse Resp B/P (MAP) Pulse Ox O2 Delivery O2 Flow Rate FiO2 10/02/16 12:00 Room Air 10/02/16 11:44 36.5 55 18 116/57 (76) 94 Room Air 10/02/16 08:05 36.6 62 16 125/63 (83) 94 Room Air 10/02/16 08:00 Room Air 10/02/16 06:23 36.5 59 18 155/79 95 Room Air 10/02/16 05:54 58 16 122/56 96 10/02/16 05:07 54 16 122/60 95 Room Air 10/02/16 05:01 122/60 95 Room Air 10/02/16 04:44 61 15 10/02/16 04:31 112/62 10/02/16 04:14 57 15 93 Room Air 10/02/16 04:01 108/52 10/02/16 04:00 68 19 108/52 94 Room Air 10/02/16 03:44 67 20 10/02/16 03:39 65 13 94 Room Air 10/02/16 03:32 65 20 116/52 94 Room Air 10/02/16 03:32 Review Cardiovascular: regular rate, rhythm, no edema, no JVD, + systolic murmur Abdomen: non tender, soft Lungs: lungs clear Pre-Sedation Airway Assessment Oral Cavity: WNL Able to Visualize Vocal Cords: No Short Thick Neck: No Hx of Sleep Apnea: No Smoking Status: Former Smoker Mallampati Classification: Class III Procedure Planning Contraindications-for Mod Sed: None Yes Notes The planned sedation has been discussed with the patient and consent obtained. I have identified the patient, determined the appropriateness of sedation and have assessed the patient immediately prior to the procedure. All medicine(s) and interventions are by my order.
[2016-10-02] MEDS ORDERED: EPTIFIBATIDE 2 MG/ML 10 ML VIAL IV ONE (16:21)
--- NOTE | 2016-10-02 17:11 | Procedure Note ---
Post-Mod Sedation Assessment General Date of Moderate Sedation Oct 02, 2016. Vital Signs: Vital Signs Past 12 Hours Date Time Temp Pulse Resp B/P (MAP) Pulse Ox O2 Delivery O2 Flow Rate FiO2 10/02/16 16:52 58 16 121/78 (92) 100 Room Air 10/02/16 12:00 Room Air 10/02/16 11:44 36.5 55 18 116/57 (76) 94 Room Air 10/02/16 08:05 36.6 62 16 125/63 (83) 94 Room Air 10/02/16 08:00 Room Air 10/02/16 06:23 36.5 59 18 155/79 95 Room Air 10/02/16 05:54 58 16 122/56 96 Review - Discharge Criteria Vital Signs Stable: Yes Alert/Oriented/Conversant: Yes Returned to Baseline Mental St: Yes Nausea Absent/Minimal: Yes Pain/Discomfort/Absent/Minimal: Yes Normal/Baseline Respirations: Yes Active Bleeding?: No Pt Received D/C Instructions: N/A Prescriptions Given: None Specific Proced. D/C Criteria Distal Pulses Present (Cardiac: Yes Groin site assessed-Card Cath: N/A Voided Prior To Discharge: N/A Discharged Patients Adult Escort/Transportation: N/A
[2016-10-02] MEDS ORDERED: ATROPINE SULFATE 0.1 MG/ML 5ML SYR IV PRN (17:15)
--- NOTE | 2016-10-02 17:15 | Cardiac Catheterization ---
Procedure Note Procedure Date Oct 02, 2016. Pre-Procedure Diagnosis Non STEMI AUC Score 8 Post-Procedure Diagnosis Severe CAD, Successful PCI, Elevated Intracardiac Pressures Procedure(s) Performed Coronary Angiography, Left Heart Cath, PTCA, Drug Eluting Stent Mechanic Recovery Dr. 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 The electrocardiogram revealed sinus bradycardia, old anteroseptal TX, T-wave inversions leads V2-V6 and 1 and aVL. Echocardiography revealed LV ejection fraction 45-50 percent, moderate aortic stenosis, hypokinesis of the anterior septum, anterior, anterolateral and apical segments of the left ventricle. The peak troponin I was 0.293. History of coronary artery disease, hypertension, dyslipidemia, and diabetes mellitus. History of anterior myocardial infarction treated with deployment of 2.5 x 30 millimeter and 3.0 x 26 millimeter Medtronic Resolute Integrity drug-eluting stents in the LAD. History of non ST elevation myocardial infarction treated with deployment of Hinton Xience 2.5 x 28 millimeter and 2.75 x 8 millimeter drug-eluting stents in the left circumflex. These procedures were performed at [facility]. Catheterization site: 6 [place] slender glide sheath right radial artery. Diagnostic catheter: 5 [place] brachial 3.5 diagnostic catheter. This was used to perform coronary angiography and left heart catheterization. Interventional equipment and interventional protocol: Because of spasm in the right radial artery ,5 [place] guide catheters were used. Intravenous heparin and a bolus of Integrilin was used prior to intervention. Therapeutic activated clotting time documented. It was 1st attempted to perform the procedure with 5 [place] EBU 3.5 and then 5 [place] EBU 4.0 catheters. These attempts were unsuccessful. These catheters would not adequately cannulate the left main. The left main was adequately cannulated using a 5 [place] AL 2 guide catheter. It was 1st attempted to cross the severe proximal left circumflex stenosis using a [employer] [place] guidewire. These attempts were unsuccessful. The proximal left circumflex occlusion was easily crossed using an [employer] Whisper guidewire. PTCA was performed to the proximal left circumflex using an Hinton Mini Trek 2.0 x 8 millimeter balloon dilatation catheter. Two inflations of 14 atmospheres for duration of 15 seconds. A Medtronic resolute integrity 3.0 x 9 millimeter stent was deployed in the proximal left circumflex. The stent was 1st deployed at a pressure of 12 atmospheres for duration of 45 seconds. The stent delivery balloon was kept in place. A 2nd inflation of 14 atmospheres for duration of 15 seconds was then performed. Follow-up coronary angiography was then performed. Hemostasis: Terumo TR band. Complications: None. Findings: Fluoroscopy revealed coronary calcifications and the LAD and left circumflex stents. The coronary circulation was right dominant. The left main coronary artery was a large caliber vessel without obstructive disease. It gave rise to medium caliber left anterior descending and left circumflex coronary arteries. The very proximal LAD gave rise to a very small caliber 1st diagonal artery which had a 30 percent ostial and proximal stenosis. Stents were present from the proximal to mid LAD. There was a 10 percent in stent restenosis proximally. Following the origin of a very small caliber 2nd diagonal artery (which also had ostial and proximal 30 percent stenoses) and following the origin of the 1st septal perforators the stented region was under expanded. There was at least a 30 percent diffuse narrowing at this site. The mid LAD had diffuse 10-20 percent in stent restenoses. Following the stented region , the mid LAD had a 30 percent stenosis. The distal LAD had a 10-20 percent stenosis. The distal LAD was a very small caliber vessel. the proximal left circumflex had a subtotal 99 percent stenosis. Stents were located from the proximal circumflex into left circumflex marginal. The proximal left circumflex marginal had a 30 percent stenosis. The mid segment of the marginal after the stent had a 40 percent stenosis. The remainder of the vessel had minor luminal irregularities. CAT 3 flow was present in the left circumflex and the marginal artery. Following stent deployment in the proximal left circumflex the residual stenosis at the new stent site was 0 percent. There is no evidence of dissection, thrombus, perforation, or distal embolic event. CAT 3 flow in left circumflex and marginal. The right coronary was a large caliber vessel. Had 30 percent proximal, 30 percent mid, and 20 percent/20 percent distal stenoses. The distal RCA gave rise to a long small caliber posterior descending artery which had no obstructive disease. It then gave rise to a long small caliber 1st posterolateral artery which had 20 percent proximal and 30 percent mid segment stenoses. It gave rise to a long small caliber 2nd posterolateral artery which had 30 percent ostial and proximal stenoses. It then gave rise to a long small caliber 3rd posterolateral artery which had a 20 percent proximal stenosis. Plan: The patient will remain on dual antiplatelet therapy with aspirin and clopidogrel. In light of his extensive coronary artery stents would recommend indefinite dual antiplatelet therapy unless a contraindication to its use arises. He will remain on beta-lex, statin, and DAMIEN-inhibitor therapy. Postprocedure electrocardiograms and labs ordered. 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 Hemodynamics Rest Ao: 121/64/85 mm Hg Final Ao: 160/67/113 mm Hg LV: 116/19 mm Hg Recommendations Medical therapy and/or Counseling, PCI without planned CABG Specimens None Radiation Exposure (mGy) 3564 Contrast (mls) 235 ml Visipaque Fluids (cc crystalloids) 130 Drains none Anesthesia Intravenous Versed and fentanyl. Lidocaine 1 percent for local anesthesia. Procedural Complication(s) None Disposition PCU ACC Data Cardiac Status Clinical evaluation leading to the procedure CAD Presntation: Unstable angina, Non STEMI Anginal Classification: CCS IV Heart Failure: No Cardiogenic Shock w/in 24Hrs: No Cardiac Arrest w/in 24Hrs: No Imaging studies past 6 months: Yes Stress studies past 6 months: No Standard Exercise Stress Test: No Stress Echocardiogram: No Stress Testing w/SPECT MPI: No Cardiac CTA: No Coronary Anatomy Dominant: Right Left Main (% Stenosis): Normal LAD (% Stenosis): Proximal (10), Mid (30,10-20,30), Distal (10-20) D1 (% Stenosis): Ostial (30), Proximal (30) D2 (% Stenosis): Ostial (30), Proximal (30) Circumflex (% Stenosis): Proximal (99) OM1 (% Stenosis): Proximal (30), Mid (40), Distal (0-10) RCA (% Stenosis): Proximal (30), Mid (30), Distal (20,20) R PDA (% Stenosis): Normal R PL1 (% Stenosis): Proximal (20), Mid (30) R PL2 (% Stenosis): Ostial (30), Proximal (30) Left Ventricular Angiography EF (%): NA Diagnostic Physician's Name: Chao Chavez M.D. Status: Elective Closure Device Percutaneous Entry Location: Radial Closure Device: Radial Band Recommendations: Medical therapy and/or Counseling, PCI without planned CABG PCI Indication: PCI for high risk Non-STEMI Lesion Segment Name: Proximal left circumflex Culprit Artery: Yes Stenosis Prior to Rx (%): 99 Chronic Total Occlusion: No IVUS: No FFR: No Ratio: less than or equal to 0.75% Pre-Procedure CAT Flow: 3 Lesion Complexity: Non-High/Non-C Lesion Length (mm): 5 Thrombus Present: No Bifurcation Lesion: No Guidewire Across Lesion: Yes Guidewire: Stenosis Post-Procedure (%): 0 Post-Procedure CAT Flow: 3 Device(s) Deployed: Yes Type of Device(s): [employer] 3 X 9 mm Resolute Integrity CIPRIANO Intraprocedure Events Significant Dissection: No Perforation: No
[2016-10-02] MEDS: SODIUM CHLORIDE 0.9% 1000ML 1,000 ML IV SCH (17:44)
--- NOTE | 2016-10-02 18:35 | ECHOCARDIOGRAM REPORT ---
*NOTICE TO RECEIVING DEMOCRAT AGENCY This information is strictly Confidential and protected under [place] law. [place] law prohibits you from making any further disclosure of this information unless further disclosure is expressly permitted by the written consent of the person to whom it pertains or is authorized by law. A general authorization for the release of medical or other information is not sufficient for this purpose. Hospital accepts no responsibility if the information is made available to any other person, INCLUDING THE PATIENT. Interpretation Summary * Name: MISHA CHIN Study Date: 10/02/2016 09:48 AM BP: 125/63 mmHg * Patient Location: .2T\S\S235\S\1 HR: 62 * : 1945 (M/d/yyy) Gender: Male Height: 70 in * Age: 70 yrs Ethnicity: [place] Weight: 248 lb * Ordering Physician: Pati Pride * Referring Physician: Self, Referred * Performed By: Melvi Monte RDCS * * Reason For Study: CHEST PAIN * BSA: 2.3 m2 * Mildly reduced overall left ventricular systolic function. * Mild concentric left ventricular hypertrophy. * Class 1 LV diastolic dysfunction. * Anteroseptal, anterior, apical, and anterolateral hypokinesis of the left ventricle. * Borderline left atrial and aortic root dilatation. * Mild to moderate aortic stenosis. * Mild aortic regurgitation. * . Procedure Details * A contrast injection of Definity was performed to improve assessment of LV function. * Contrast was injected into an intravenous site in the left arm. * One vial of Definity ultrasound contrast was diluted in normal saline to a total volume of 10 ml. A total of '2' ml of solution was administered during imaging. * Lot # [id number] of Definity utilized for procedure. * Expiration date NOV 17. * The attending nurse who injected the contrast agent was EULALIA GIRON RN. Left Ventricle * The left ventricle is normal in size. * There is mild concentric left ventricular hypertrophy. * Ejection Fraction = 45-50%. * Left ventricular systolic function is mildly reduced. * A full diastolic examination was done with clinical findings of Class I diastolic dysfunction. * Anterior, anteroseptal, anterolateral, and apical hypokinesis. Right Ventricle * The right ventricle is normal in size and function. Atria * Borderline left atrial enlargement. * Right atrial size is normal. * No ASD detected; PFO is not assessed. Mitral Valve * There is mild mitral annular calcification. * There is no mitral valve stenosis. * There is trace mitral regurgitation. Tricuspid Valve * The tricuspid valve is not well visualized. * Significant tricuspid regurgitation is absent. Aortic Valve * The aortic valve is trileaflet. * The valve is calcified and has decreased but adequate opening on 2D imaging. * Aortic valve area was calculated at 1.3 cm\S\2 using the continuity equation. * Dimensionless valve index 0.37. Mild-moderate aortic stenosis. * Mild aortic regurgitation. Pulmonic Valve * The pulmonic valve is not well visualized. * The pulmonary valve is inadequately visualized, but the Doppler data is adequate for interpretation. * There is no pulmonic valvular stenosis. * There is no significant pulmonary regurgitation. Great Vessels * Borderline aortic root dilatation. Pericardium/Pleural * There is no pericardial effusion. Great Vessels * Normal inferior vena cava diameter and respiratory variation suggests normal central venous pressure. MMode 2D Measurements and Calculations IVSd 1.3 cm IVSs 1.5 cm LVIDd 5.5 cm LVIDs 4.1 cm LVPWd 1.4 cm LVPWs 1.9 cm IVS/LVPW 0.89 FS 25.0 % EDV(Teich) 147.4 ml ESV(Teich) 75.2 ml EF(Teich) 49.0 % EDV(cubed) 166.3 ml ESV(cubed) 70.0 ml EF(cubed) 57.9 % % IVS thick 16.7 % % LVPW thick 33.9 % LV mass(C)d 321.7 grams LV mass(C)dI 140.6 grams/m\S\2 LV mass(C)s 296.8 grams LV mass(C)sI 129.8 grams/m\S\2 SV(Teich) 72.2 ml SI(Teich) 31.6 ml/m\S\2 SV(cubed) 96.3 ml SI(cubed) 42.1 ml/m\S\2 Ao root diam 4.0 cm Ao root area 12.3 cm\S\2 LA dimension 3.9 cm LA/Ao 0.98 LVOT diam 2.1 cm LVOT area 3.6 cm\S\2 LVAd ap4 50.6 cm\S\2 LVLd ap4 9.8 cm EDV(MOD-sp4) 207.4 ml EDV(sp4-el) 221.2 ml LVAs ap4 35.1 cm\S\2 LVLs ap4 9.2 cm ESV(MOD-sp4) 104.9 ml ESV(sp4-el) 113.1 ml EF(MOD-sp4) 49.4 % EF(sp4-el) 48.9 % LVAd ap2 37.0 cm\S\2 LVLd ap2 9.4 cm EDV(MOD-sp2) 117.7 ml EDV(sp2-el) 122.8 ml LVAs ap2 25.3 cm\S\2 LVLs ap2 8.5 cm ESV(MOD-sp2) 59.3 ml ESV(sp2-el) 63.6 ml EF(MOD-sp2) 49.6 % EF(sp2-el) 48.2 % LVLd %diff -4.16 % EDV(MOD-bp) 163.2 ml LVLs %diff -8.22 % ESV(MOD-bp) 82.4 ml EF(MOD-bp) 49.5 % SV(MOD-sp4) 102.4 ml SI(MOD-sp4) 44.8 ml/m\S\2 SV(MOD-sp2) 58.4 ml SI(MOD-sp2) 25.5 ml/m\S\2 SV(MOD-bp) 80.8 ml SI(MOD-bp) 35.3 ml/m\S\2 SV(sp4-el) 108.2 ml SI(sp4-el) 47.3 ml/m\S\2 SV(sp2-el) 59.2 ml SI(sp2-el) 25.9 ml/m\S\2 Doppler Measurements and Calculations MV E max janette 45.4 cm/sec MV A max janette 95.8 cm/sec MV E/A 0.47 MV dec time 0.20 sec Ao V2 max 201.9 cm/sec Ao max PG 16.4 mmHg Ao max PG (full) 14.1 mmHg Ao V2 mean 155.3 cm/sec Ao mean PG 10.8 mmHg Ao mean PG (full) 9.4 mmHg Ao V2 VTI 53.1 cm SKYLER(I,A) 1.3 cm\S\2 SKYLER(I,D) 1.3 cm\S\2 SKYLER(V,A) 1.3 cm\S\2 SKYLER(V,D) 1.3 cm\S\2 AI max janette 401.1 cm/sec AI max PG 64.4 mmHg AI dec slope 145.4 cm/sec\S\2 AI P1/2t 808.2 msec LV V1 max PG 2.3 mmHg LV V1 mean PG 1.3 mmHg LV V1 max 75.5 cm/sec LV V1 mean 53.7 cm/sec LV V1 VTI 19.7 cm SV(Ao) 654.0 ml SI(Ao) 285.9 ml/m\S\2 SV(LVOT) 70.3 ml SI(LVOT) 30.8 ml/m\S\2
[2016-10-02 20:21] LABS: PARTIAL THROMBOPLASTIN RATIO 3.3
[2016-10-02] MEDS ORDERED: EZETIMIBE 10MG TAB PO SCH (21:00)
[2016-10-02] MEDS ORDERED: TAMSULOSIN HCL 0.4 MG CAP PO SCH (21:00)
[2016-10-03 00:26] VITALS: BP 110/64; PULSE 55; TEMP 36.6; O2SAT 93
[2016-10-03] MEDS: SODIUM CHLORIDE 0.9% 1000ML 1,000 ML IV SCH (04:20)
[2016-10-03 04:42] VITALS: BP 90/64; PULSE 59; TEMP 36.4; O2SAT 94
[2016-10-03 06:00] VITALS: BP 105/68
[2016-10-03] MEDS: CARVEDILOL 6.25 MG TAB PO SCH (07:40)
[2016-10-03] MEDS: ALLOPURINOL 100 MG TAB PO SCH (07:41)
[2016-10-03] MEDS: ASPIRIN 81 MG ECTAB PO SCH (07:41)
[2016-10-03] MEDS: ATORVASTATIN 40 MG TAB PO SCH (07:41)
[2016-10-03] MEDS: NYSTATIN OINT 15 GM TUBE EXT SCH ×2 (07:41→12:23)
[2016-10-03] MEDS: LISINOPRIL 10 MG TAB PO SCH (07:42)
[2016-10-03] MEDS: CLOPIDOGREL BISULFATE 75 MG TAB PO SCH (07:42)
[2016-10-03] MEDS: PANTOprazole SOD 40 MG TAB PO SCH (07:42)
[2016-10-03] MEDS: INSULIN ASPART 100 UNITS/ML 3 ML PEN SC SCH ×2 (07:44→12:23)
[2016-10-03 07:49] VITALS: BP 112/74; PULSE 58; TEMP 36.7; O2SAT 94
[2016-10-03 08:00] LABS: MEAN CELL VOLUME 90.9 fL (80-100); MEAN CORPUSCULAR HEMOGLOBIN 30.1 pg (25-34); MEAN CORPUSCULAR HGB CONC 33.1 g/dl (32-36); MEAN PLATELET VOLUME 10.9 fL (7.4-10.4); PLATELET COUNT 203 K/uL (130-400); RED BLOOD COUNT 3.96 M/uL (4.7-6.1); WHITE BLOOD COUNT 7.66 K/uL (4.8-10.8)
[2016-10-03 08:29] LABS: CALCIUM 8.4 mg/dl (8.5-10.1); CREATININE 0.83 mg/dl (0.60-1.40)
--- NOTE | 2016-10-03 09:53 | Discharge Instructions ---
Discharge Instructions Date of Service Oct 03, 2016. Admission Reason for Admission: Acute Coronary Syndrome Discharge Discharge Diagnosis / Problem: NSTEMI, Stent placement Discharge Goals Goal(s): Improve disease control Activity Recommendations Activity Limitations: per Instructions/Follow-up section Lifting Limitations: no more than 10 pounds Exercise/Sports Limitations: as tolerated May Resume Sexual Activity: when tolerated Shower/Bathe: no limitations ACTIVITY RECOMMENDATIONS: Excess manipulation of the RIGHT wrist should be avoided for the next 24-48 hours. * No lifting over 2 pounds (approximately a 1/2 gallon of milk) with the utilized arm for 24 hours. * Keep the site of the procedure covered with a bandage for 24 hours. *You may shower the day after the procedure. Do not take a tub bath or submerge the puncture site in water for the next 3 days. *Do not operate any motorized equipment for 3 days. SPECIAL CARE INSTRUCTIONS: The site may be slightly bruised and sore following your procedure. Should any of the following occur, contact the Dr. who performed your procedure. 1. Redness/inflammation, swelling, chills, or fever, or colored drainage at procedure site within 3-7 days after your procedure. 2. Coldness, discoloration, ongoing numbness, severe pain, or swelling. Expect mild tingling of hand and tenderness at the puncture site for up to three days. If this persists beyond three days, or other symptoms develop, notify the Dr. who performed your procedure. BLEEDING: If the procedure site on your wrist begins to bleed, do not panic 1. Place 1 or 2 fingers firmly just slightly above the insertion site to stop the bleeding. You may be able to feel your pulse as you hold pressure. 2. Lift your finger after 5 minutes to see if the bleeding has stopped. 3. Once the bleeding has stopped, gently wipe the wrist area clean with a bandage. * If the bleeding from your wrist does not stop after 10 minutes, or if there is a large amount of bleeding or spurting, call 911 (do not drive yourself to the hospital). SKIN IRRITATION: * You may experience some redness and/or swelling in the area where radiation was administered. If any skin irritation occurs, please contact your family physician. FOLLOW UP VISIT: Keep any scheduled doctor appointments. . Instructions / Follow-Up Instructions / Follow-Up Your HbA1c (level of diabetes) was also 8.5% - Please review this with your PCP and make adjustments to your medications as tolerated. Home Care: * Take your medications exactly as directed. Don't skip doses. * Remember that recovery after a heart attack takes time. Plan to rest for at lease 4-8 weeks while you recover. Then return to normal activity when your doctor says it's okay. * Ask your doctor about joining a heart rehabilitation program. * Tell your doctor if you are feeling depressed. Feelings of sadness are common after a heart attack, but it is important that you speak to someone if you are feeling overwhelmed by these feelings. * If you are having chest pain, call 911 for an ambulance. Do NOT drive yourself to the hospital. * Ask your family members to learn CPR. * Learn to take your own blood pressure and pulse. Keep a record of your results. Ask your doctor when you should seek emergency medical attention. He or she will tell you which blood pressure reading is dangerous. Lifestyle Changes: * Maintain a healthy weight. Get help to lose any extra pounds. * Cut back on salt. * Limit canned, dried, packaged, and fast foods. * Don't add salt to your food. * Season foods with herbs instead of salt when you cook. * Break the smoking habit. Enroll in a stop-smoking program to improve your chances of success. * Limit fatty foods. * Check your lipid levels regularly. (Your doctor can show you how to do this.) * Build up your activity according to your doctor's recommendation. * Ask your doctor when it's okay to resume sexual activity. * Tell your doctor about any erectile dysfunction (ED) medication you are taking. Some ED medications are not safe if you take certain heart medications. * Try to manage stress. Follow Up: It is important for you to keep your follow up appointments with your medical provider. Current Hospital Diet Patient's current hospital diet: AHA Diet (Heart Healthy), Diabetes Type 2 Diet Discharge Diet Recommended Diet: AHA Diet (Heart Healthy) Procedures Procedures Performed: Cardiac Cath on 10/02/16 Pending Studies Studies pending at discharge: no Laboratory Results Hemoglobin A1c Test 10/02/16 03:00 Range/Units Estimated Average Glucose 197 mg/dl Hemoglobin A1c 8.5 H 4.5-5.6 % Lipid Panel Test 7/3/17 03:00 Range/Units Triglycerides Level 149 0-150 mg/dl Cholesterol Level 80 0-200 mg/dl HDL Cholesterol 31 mg/dl Cholesterol/HDL Ratio 2.6 LDL Cholesterol, Calculated 19 mg/dl Medical Emergencies . Who to Call and When: Medical Emergencies: If at any time you feel your situation is an emergency, please call 911 immediately. Call 911 immediately or go to your nearest Emergency Room if you experience any of the following: Warning Signs and Symptoms of a Heart Attack * Chest pain that is not relieved by medication * Shortness of breath . Non-Emergent Contact Non-Emergency issues call your: Primary Care Provider . . "Provider Documentation" section prepared by Layne Steele. . AMI Core Measures Reason no ASA as I/P: Treatment provided - N/A Reason no ASA at D/C: Treatment provided - N/A Reason no statin as I/P: Treatment provided - N/A Reason no statin at D/C: Treatment provided - N/A VTE Core Measure Inpt VTE Proph given/why not?: Other Anticoagulation (heparin drip)
--- NOTE | 2016-10-03 10:07 | Cardiology Follow-Up ---
Subjective Subjective Date of Service: Oct 03, 2016. Pt evaluation today including: conversation w/ patient, conversation w/ family , physical exam, chart review, lab review, review of studies, review of inpatient medication list Additional Details: Patient feeling well. No chest pain, shortness of breath. No access site complications. Tele reviewed - brief NS-VT (4 beats) Problem List Medical Problems: (1) Myocardial infarction Status: Chronic (2) NSTEMI (non-ST elevated myocardial infarction) Status: Acute Surgical Problems: (1) H/O heart artery stent Status: Chronic Review of Systems Constitutional: No fever, No weight loss, No weakness Respiratory: No cough, No sputum Cardiac: No chest pain Abdomen: No pain, No nausea, No vomiting, No diarrhea, No GI bleeding Male : No urinary frequency, No sexual dysfunction Neurologic: No paralysis, No balance problems Heme: No abnormal bleeding/bruising, No clotting problems Endo: No fatigue Skin: No problem reported Objective Vital Signs Last Vital Signs Documentation Date Time Temp Pulse Resp B/P (MAP) Pulse Ox O2 Delivery O2 Flow Rate FiO2 10/03/16 08:00 Room Air 10/03/16 07:49 36.7 58 18 112/74 (87) 94 Physical Exam: General Appearance: no apparent distress ENT: hearing grossly normal Neck: supple, no JVD Respiratory/Chest: chest non-tender, lungs clear Cardiovascular: regular rate, rhythm, no murmur Abdomen: non tender, soft Extremities: non-tender, no pedal edema, + pertinent finding (No hematoma/ ecchymosis. Intact distal pulses/sensation. ) Neurologic/Psychiatric: alert, normal mood/affect, oriented x 3 Skin: no rash Assessment and Plan 1. NSTEMI - s/p PCI with CIPRIANO to ostial circumflex 2. DM2 3. NS-VT 4. HTN Stable from a cardiovascular standpoint. No apparent procedural complications. From a cardiac standpoint OK for discharge later today. 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 Cardiac rehab near home. - Post procedure - no heavy lifting (>10lbs) for next week. Light activity for next 3 days before gradually resuming normal activities. Medications: Current Inpatient Medications Medications (Trade) Dose Ordered Sig/Uriah Route Start Time Stop Time Status Last Admin Dose Admin Acetaminophen (Tylenol Tab) 650 mg Q4H PRN PO 10/02/16 05:30 11/01/16 05:29 10/02/16 20:52 650 MG Ondansetron HCl (Zofran Inj) 4 mg Q6H PRN IV 10/02/16 05:30 11/01/16 05:29 Nitroglycerin (Nitrostat Tab) 0.4 mg UD PRN SL 10/02/16 05:30 11/01/16 05:29 Morphine Sulfate (MoRPHine SULFATE INJ) 2 mg Q30M PRN IV 10/02/16 05:30 10/16/16 05:29 Polyethylene (Miralax Powder Packet) 17 gm DAILY PRN PO 10/02/16 05:30 11/01/16 05:29 Allopurinol (Zyloprim Tab) 100 mg DAILY PO 10/02/16 09:00 11/01/16 08:59 10/03/16 07:41 100 MG Aspirin (Ecotrin Tab) 81 mg DAILY PO 10/02/16 09:00 11/01/16 08:59 10/03/16 07:41 81 MG Atorvastatin Calcium (Lipitor Tab) 80 mg DAILY PO 10/02/16 09:00 11/01/16 08:59 10/03/16 07:41 80 MG Carvedilol (Coreg Tab) 6.25 mg BID PO 10/02/16 09:00 11/01/16 08:59 10/02/16 20:50 6.25 MG Clopidogrel Bisulfate (plAVix TAB) 75 mg DAILY PO 10/02/16 09:00 11/01/16 08:59 10/03/16 07:42 75 MG EZETIMIBE (Zetia Tab) 10 mg HS PO 10/02/16 21:00 11/01/16 20:59 10/02/16 20:50 10 MG Lisinopril (Zestril Tab) 10 mg DAILY PO 10/02/16 09:00 11/01/16 08:59 10/03/16 07:42 10 MG Pantoprazole Sodium (Protonix Tab) 40 mg DAILY PO 10/02/16 09:00 11/01/16 08:59 10/03/16 07:42 40 MG Tamsulosin HCl (Flomax Cap) 0.4 mg HS PO 10/02/16 21:00 11/01/16 20:59 10/02/16 20:51 0.4 MG Heparin Sodium/ Dextrose 500 ml @ 30 mls/hr [id number] PRN IV 10/02/16 05:45 11/01/16 05:44 10/02/16 05:48 32 MLS/HR Insulin Aspart (novoLOG ASPART) SLIDING SCALE G... ACHS SC 10/02/16 07:00 11/01/16 06:59 10/03/16 07:44 3 UNITS Nystatin (Mycostatin Oint) 1 appln [id number] EXT 10/02/16 08:00 11/01/16 07:59 10/03/16 07:41 1 APPLN Sodium Chloride 1,000 ml @ 100 mls/hr Q10H IV 10/02/16 17:15 11/01/16 17:14 10/03/16 04:20 100 MLS/HR Atropine Sulfate (Atropine Sulfate 0.1MG/Ml Inj) 0.5 mg ONE PRN IV 10/02/16 17:15 11/01/16 17:14 Morphine Sulfate (MoRPHine SULFATE INJ) 2 mg Q5M PRN IV 10/02/16 17:15 10/16/16 17:14 Lab Results: 10/03/16 07:20 10/03/16 07:20 Test 10/02/16 11:48 10/02/16 16:32 10/02/16 19:52 10/03/16 00:11 Hepatitis C Antibody Screen NEG (NEG) Kaolin Activated Coagulation Time 378 SECONDS (94-140) Troponin I 0.293 ng/ml (0-0.045) Activated Partial Thromboplast Time 26.0 SECONDS (21.0-31.0) Partial Thromboplastin Ratio 1.0 Test 10/03/16 06:54 10/03/16 07:20 Bedside Glucose 139 mg/dl (70-99) Red Blood Count 3.96 M/uL (4.7-6.1) Mean Corpuscular Volume 90.9 fL (80-100) Mean Corpuscular Hemoglobin 30.1 pg (25-34) Mean Corpuscular Hemoglobin Concent 33.1 g/dl (32-36) RDW Standard Deviation 44.1 fL (36.4-46.3) RDW Coefficient of Variation 13.4 % (11.5-14.5) Mean Platelet Volume 10.9 fL (7.4-10.4) Anion Gap 6.0 mmol/L (3-11) Est Creatinine Clear Calc Drug Dose 103.8 ml/min Estimated GFR () 104.1 Estimated GFR (Non- 89.8 BUN/Creatinine Ratio 17.0 (10-20) Calcium Level 8.4 mg/dl (8.5-10.1)
--- NOTE | 2016-10-03 10:27 | Discharge Summary ---
Discharge Summary Date of Service Oct 03, 2016. (Layne Steele MD) Discharge Summary Admission Date: Oct 02, 2016 at 06:00 Discharge Date: Oct 03, 2016 Discharge Disposition: Home Principal Diagnosis: NSTEMI with Stent placement Problems/Secondary Diagnoses: (1) H/O heart artery stent Status: Chronic (2) Myocardial infarction Status: Chronic Procedures: Lesion found on Cath Segment Name: Proximal left circumflex Culprit Artery: Yes Stenosis Prior to Rx (%): 95-99 Chronic Total Occlusion: No IVUS: No FFR: No Ratio: less than or equal to 0.75% Pre-Procedure CAT Flow: 3 Lesion Complexity: Non-High/Non-C Lesion Length (mm): 5 Thrombus Present: No Bifurcation Lesion: No Guidewire Across Lesion: Yes Guidewire: Stenosis Post-Procedure (%): 0 Post-Procedure CAT Flow: 3 Device(s) Deployed: Yes Type of Device(s): 3 X 9 mm Resolute CIPRIANO ECHO Left Ventricle * The left ventricle is normal in size. * There is mild concentric left ventricular hypertrophy. * Ejection Fraction = 45-50%. * Left ventricular systolic function is mildly reduced. * A full diastolic examination was done with clinical findings of Class I diastolic dysfunction. * Anterior, anteroseptal, anterolateral, and apical hypokinesis. Consultations: Dr Chavez, Cardiology (Layne Steele MD) Problems/Secondary Diagnoses: 1. uncontrolled T2DM 2. gout 3. GERD 4. BPH 5. acute systolic CHF 2nd to acute VA 6. hyperlipidemia (Stephen Garcia MD) Medication Reconciliation New Medications: Nitroglycerin (Nitrostat) 0.4 Mg Tab 1 TAB SL UD, #25 TAB 3 Refills Continued Medications: Allopurinol (Zyloprim) 100 Mg Tab 100 MG PO DAILY, TAB Aspirin (Aspirin Ec) 81 Mg Tab 81 MG PO DAILY Atorvastatin (Lipitor) 80 Mg Tab 80 MG PO DAILY, TAB Carvedilol (Coreg) 6.25 Mg Tab 6.25 MG PO BID, TAB Clopidogrel (Plavix) 75 Mg Tab 75 MG PO DAILY, TAB Ezetimibe (Zetia) 10 Mg Tab 10 MG PO HS, TAB Insulin Glargine (Lantus) 100 Unit/Ml Inj 44 UNITS SC HS, VIAL Lisinopril (Prinivil) 10 Mg Tab 10 MG PO DAILY, TAB Pantoprazole (Protonix) 40 Mg Tab 40 MG PO DAILY, #30 TAB Tamsulosin Hcl (Flomax) 0.4 Mg Cap 0.4 MG PO HS, CAP Discontinued Medications: Metformin Hcl (Glucophage) 1,000 Mg Tab 1000 MG PO BID, TAB Discharge Exam Review of Systems: Constitutional: No fever, No chills ENT: No hearing loss Respiratory: No cough, No sputum, No wheezing Cardiovascular: No chest pain, No orthopnea Abdomen: No pain, No nausea Musculoskeletal: No joint pain Genitourinary - Male: No hematuria, No dysuria Neurologic: No memory loss, No paralysis, No weakness Psychiatric: No depression symptoms Endocrine: No fatigue Hematologic / Lymphatic: No abnormal bleeding/bruising Integumentary: No rash Physical Exam: General Appearance: WD/WN, no apparent distress Eyes: normal inspection, PERRL ENT: hearing grossly normal Neck: supple, no JVD Respiratory/Chest: lungs clear, normal breath sounds, no respiratory distress Cardiovascular: regular rate, rhythm, no murmur Abdomen / GI: normal bowel sounds, non tender, soft Extremities: no pedal edema Neurologic/Psychiatric: alert Skin: no rash (Layne Steele MD) Hospital Course HPI: 70-year-old male with a past medical history of VA in 2013, 2016 status post stent placement, diabetes, gout presented to the ER with complaints of burning chest pain which started about a week ago which is especially worse on exertion. Complains that the chest pain worsened last night after he took a flight of stairs described the pain as a burning sensation. Pain is in the precordial area with no radiation. Denies any shortness of breath, palpitations, dizziness. He however has shortness of breath on exertion. He reported that the chest pain resolved after taking one tablet of sublingual nitroglycerin and currently is pain-free. Denies any diaphoresis but complained of nausea. Denies vomiting, abdominal pain, diarrhea, coughing, urinary symptoms HOSPITAL COURSE: 70 yo diabetic M with known CAD (VA in 2013, s/p stent placement 2015), with angina, with mild troponin elevation, found to have an NSTEMI and during cath had 99% occlusion of the circumflex. NSTEMI Cardiology followed, needs follow up within 2 weeks and cardiac rehab Cath results as above Echo as above Hyperlipidemia Lipitor increased to 80mg Zetia continued T2DM HbA1c 8.5% Metformin on hold until a repeat BMP completed Per diabetic nurse recommendations, we gave an Rx for OneTouch Verio test strips to check 3x/day & OneTouch Delica lancets to check 3x/day. He has been given a new glucometer. Gout Continue home allopurinol GERD Continue home Protonix Intertrigo under the right breast Nystatin CODE STATUS: FULL DISPOSITION: Discharged in good condition on 10/03/16 VTE: Received heparin during admission Total Time Spent: Greater than 30 minutes This includes examination of the patient, discharge planning, medication reconciliation, and communication with other providers. (Layne Steele MD) Resident Physician Supervision Note: I was present with PGY 3 Dr. Layne Steele during the discharge history and exam. I discussed the case with the resident and agree with the findings and plan as documented in the discharge summary. Any exceptions or clarifications are listed here: none. 71yo male with known CAD s/p VA in 2013 and 2015 presenting with chest pain due to NSTEMI. Underwent left heart catheterization showing occluded left circumflex artery requiring drug-eluting stent. Post-cath he remained hemodynamically stable. He was counseled regarding the need for improved diabetes control (HbA1c >8%). Discharge exam - gen - nad neck - no JVD heart - RRR, s1, s2, no murmur lungs - CTA b/l abd - soft, NT, ND, BS+ ext - no edema; right wrist without hematoma; cap refill < 2 sec Documented By: Stephen Garcia MD (Stephen Garcia MD) Discharge Instructions Please refer to the electronic Patient Visit Report (Discharge Instructions) for additional information. (Layne Steele MD) Follow-Up - with PCP within 1 week, needs a repeat BMP - with Cardiology in 2 weeks - with Cardiac rehab (Layne Steele MD) Additional Copies To Tyshawn Sanon MD; Chao Chavez M.D. Resident Tracking Resident Involvement: Resident Care Provided Care Provided: [facility] (Layne Steele MD)
[2016-10-03] MEDS ORDERED: NTRGSL/4 SL (10:35)
[2016-10-03 12:02] VITALS: BP 106/71; PULSE 56; TEMP 36.4; O2SAT 93
[2016-10-03 12:53] VITALS: BP 106/71; PULSE 56; TEMP 36.4; O2SAT 93
== END 2016-10-03 14:13 | disposition home or self-care (01) | DRG 247 ==
LOC: C.EDB 02:42 → ENRESERV 05:32 → C.2T 06:00
PROVIDERS: ADMIT Family Medicine; ATTEND Internal Medicine
PROC: B2111ZZ Fluoroscopy of Multiple Coronary Arteries using Low Osmolar Contrast (ICD-10-PCS; principal; 2016-10-02 15:01)
PROC: 4A023N7 Measurement of Cardiac Sampling and Pressure, Left Heart, Percutaneous Approach (ICD-10-PCS; principal; 2016-10-02 15:01)
PROC: 027034Z Dilation of Coronary Artery, One Artery with Drug-eluting Intraluminal Device, Percutaneous Approach (ICD-10-PCS; principal; 2016-10-02 15:01)
DX: I21.4 Non-ST elevation (NSTEMI) myocardial infarction (principal); I47.1 Supraventricular tachycardia; I25.2 Old myocardial infarction; I24.9 Acute ischemic heart disease, unspecified; E78.5 Hyperlipidemia, unspecified; R07.89 Other chest pain; E11.9 Type 2 diabetes mellitus without complications; K21.9 Gastro-esophageal reflux disease without esophagitis; I10 Essential (primary) hypertension; R01.1 Cardiac murmur, unspecified; M10.9 Gout, unspecified; L30.4 Erythema intertrigo; Z87.891 Personal history of nicotine dependence; Z95.5 Presence of coronary angioplasty implant and graft; Z79.82 Long term (current) use of aspirin; Z79.899 Other long term (current) drug therapy; Z79.02 Long term (current) use of antithrombotics/antiplatelets; Z79.4 Long term (current) use of insulin; Z79.84 Long term (current) use of oral hypoglycemic drugs